=== PATIENT | female | born 1980 | race Two or more races ===

== ENCOUNTER 2016-10-04 22:13 | Emergency (ER) | payer OTHER ==
[~2016-10-04 22:13] MED LIST: AMLO5TAB4 PO; DOCU-27 PO; FERR-26 PO; HYDR115S2 PO; PRED20TA PO
[2016-10-04 22:54] LABS: BILIRUBIN,URINE NEGATIVE (NEG); GLUCOSE,URINE NEGATIVE (NEG); NITRITE,URINE NEGATIVE (NEG); PROTEIN,URINE NEGATIVE (NEG-TRACE)
[2016-10-04 22:59] LABS: BACTERIA,URINE FEW /HPF (0-FEW); RBC,URINE 0 /HPF (0-2); SQUAMOUS EPITHELIAL CELL,UR MOD /LPF
[2016-10-04] MEDS ORDERED: ONDANSETRON PF 4 MG/2 ML VIAL. IV ONE (23:15)
[2016-10-04] MEDS ORDERED: MORPHINE SULFATE 4 MG/ML DISP.SYRIN. IV ONE (23:15)
[2016-10-04] MEDS ORDERED: IV NORMAL SALINE 1000ML BAG 1,000 ML IV SCH (23:15)
[2016-10-04 23:48] LABS: BASO # 0.1 x10^3/uL (0.0-0.2); BASO % 1 % (0-3); EOS % 1 % (0-3); HEMOGLOBIN 9.2 g/dL (12.0-15.5); LYMPH # 1.9 x10^3/uL (1.0-4.8); LYMPH % 23 % (24-48); MEAN CORPUSCULAR HEMOGLOBIN 18 pg (25-35); MEAN CORPUSCULAR HGB CONC 30 g/dL (31-37); MEAN CORPUSCULAR VOLUME 62 fL (79-100); MONO % 8 % (0-9); NEUT % 67 % (31-73); PLATELET COUNT 600 x10^3/uL (140-400); RED BLOOD COUNT 5.02 x10^6/uL (3.50-5.40); RED CELL DISTRIBUTION WIDTH 19.2 % (11.5-14.5); WHITE BLOOD COUNT 8.4 x10^3/uL (4.0-11.0)
--- NOTE | 2016-10-04 23:49 | RAD ---
CT abdomen and pelvis without contrast: Reason for examination: Severe left-sided flank pain and low abdominal pain with nausea and vomiting. Helical images were obtained through the abdomen and pelvis with no intravenous or oral contrast administered. Reconstruction was performed in sagittal and coronal planes. Examination is limited by the minimal intra-abdominal fat and relatively homogeneous density of the abdominal structures. The lung bases are clear. The heart size is normal with no pericardial effusion seen. No focal abnormalities seen in the liver, spleen gallbladder or in the region pancreas or adrenal glands pancreas however is it from the adjacent bowel, aorta and inferior vena cava. The appendix is not specifically identified. There is a moderate amount of fecal material in the colon. No other focal abnormality of the intestinal tract is identified. The kidneys show no renal masses, hydronephrosis renal calculi or evidence of calcification along the course of the ureters. Calcifications consistent with phleboliths are present in the pelvis No gross abnormality is evident at the bladder, uterus or ovaries. No acute bony abnormalities are evident. Impression: Examination severely limited by the lack of the abdominal fat with crowding and poor delineation of separate abdominal structures due to homogeneous density of the abdominal tissues. No gross hydronephrosis or renal calculi identified. Appendix not identified. No cholelithiasis seen. Moderate amount of fecal material in the colon. Calcifications which are consistent with phleboliths are seen in the pelvis. Exposure: One or more of the following individualized dose reduction techniques were used for this examination: 1. Automated exposure control. 2. Adjustment of the mA and/or kV according to patient size. 3. Use of iterative reconstruction technique. Electronically signed by: Catrina Leonard MD (Oct 04, 2016 23:48:11)
[2016-10-05 00:02] LABS: CALCIUM 9.3 mg/dL (8.5-10.1); CREATININE 0.8 mg/dL (0.6-1.0); GFR 80.3; POTASSIUM 3.3 mmol/L (3.5-5.1)
[2016-10-05 00:05] LABS: ALBUMIN/GLOBULIN RATIO 0.8 (1.0-1.7); TOTAL BILIRUBIN 0.3 mg/dL (0.2-1.0); TOTAL PROTEIN 8.9 g/dL (6.4-8.2)
--- NOTE | 2016-10-05 00:14 | PHYS DOC ---
Past Medical History Past Medical History: Anemia Past Surgical History: , Tubal ligation Alcohol Use: None Drug Use: None Adult General Chief Complaint Chief Complaint: ABDOMINAL PAIN HPI HPI Patient is a 36 year old female who presents with abdominal pain. Patient reports for the past two weeks she has had increasing pain in her lower abdomen and L flank. No clear inciting or mitigating factors. Pain is accompanied by nausea and vomiting. No urinary symptoms. No vaginal bleeding or discharge. Patient has not taken anything for symptoms at home. No prior similar episodes. Review of Systems Review of Systems Constitutional: Denies fever or chills Eyes: Denies change in visual acuity or eye pain HENT: Denies nasal congestion or sore throat Respiratory: Denies cough or shortness of breath Cardiovascular: Denies chest pain GI: Lower abdominal pain, nausea, vomiting. Denies bloody stools or diarrhea : Denies dysuria or hematuria. Denies vaginal bleeding or discharge. Musculoskeletal: L flank pain. Integument: Denies rash or skin lesions Neurologic: Denies headache, focal weakness or sensory changes Current Medications Current Medications Current Medications Medications (Trade) Dose Ordered Sig/Farrah Start Time Stop Time Status Last Admin Dose Admin Amlodipine Besylate (Norvasc) 5 mg 1X ONCE 10/05/16 00:45 10/05/16 00:46 DC 10/05/16 01:04 5 MG Ceftriaxone Sodium (Rocephin Im) 250 mg 1X ONCE 10/05/16 00:45 10/05/16 00:46 DC 10/05/16 01:03 250 MG Doxycycline Hyclate (Vibra-Tab) 100 mg 1X ONCE 10/05/16 00:45 10/05/16 00:46 DC 10/05/16 01:04 100 MG Metronidazole (Flagyl) 500 mg 1X ONCE 10/05/16 00:45 10/05/16 00:46 DC 10/05/16 01:04 500 MG Morphine Sulfate 4 mg 1X ONCE 10/04/16 23:15 10/04/16 23:16 DC 10/04/16 23:46 4 MG Ondansetron HCl (Zofran) 4 mg 1X ONCE 10/04/16 23:15 10/04/16 23:16 DC 10/04/16 23:46 4 MG Sodium Chloride (Iv Sodium Chloride 0.9% 1000ml Bag) 1,000 ml @ 1,000 mls/hr Q1H 10/04/16 23:15 10/05/16 00:14 DC 10/04/16 23:47 1,000 MLS/HR Allergies Allergies Allergies Coded Allergies Type Severity Reaction Last Updated Verified No Known Drug Allergies 06/09/15 No Physical Exam Physical Exam Constitutional: Well developed, well nourished, no acute distress, non-toxic appearance HENT: Normocephalic, atraumatic, bilateral external ears normal Eyes: EOMI, conjunctiva normal, no discharge Neck: Normal range of motion, no stridor Cardiovascular: Heart rate normal, regular rhythm, no murmur Lungs & Thorax: Bilateral breath sounds clear to auscultation Abdomen: Bowel sounds normal, soft, non-distended, lower abdomen TTP without guarding or rebound Pelvic: Moderate amount thick white discharge in vault, CMT present, no significant adnexal tenderness Skin: Warm, dry, no erythema, no rash Back: L CVA tenderness Extremities: No obvious deformity, no edema Neurologic: Alert and oriented X 3, no gross deficits noted Psychologic: Affect normal, judgement normal, mood normal Current Patient Data Vital Signs Vital Signs Date Time Temp Pulse Resp B/P Pulse Ox O2 Delivery O2 Flow Rate FiO2 10/05/16 01:24 78 180/107 98 Room Air 10/04/16 23:46 16 10/04/16 22:25 98.1 98.1 Lab Values Laboratory Tests Test 10/04/16 21:40 10/04/16 22:32 10/04/16 23:40 POC Urine HCG, Qualitative Hcg negative (Negative) Urine Collection Type Unknown Urine Color Yellow Urine Clarity Clear Urine pH 6.0 Urine Specific [place] 1.020 Urine Protein Negativemg/dL (NEG-TRACE) Urine Glucose (UA) Negativemg/dL (NEG) Urine Ketones (Stick) Negativemg/dL (NEG) Urine Blood Negative (NEG) Urine Nitrite Negative (NEG) Urine Bilirubin Negative (NEG) Urine Urobilinogen Dipstick 1.0mg/dL (0.2 mg/dL) Urine Leukocyte Esterase Small (NEG) Urine RBC 0/HPF (0-2) Urine WBC 5-10/HPF (0-4) Urine Squamous Epithelial Cells Mod/LPF Urine Bacteria Few/HPF (0-FEW) Urine Mucus Mod/LPF White Blood Count 8.4x10^3/uL (4.0-11.0) Red Blood Count 5.02x10^6/uL (3.50-5.40) Hemoglobin 9.2g/dL (12.0-15.5) L Hematocrit 31.0% (36.0-47.0) L Mean Corpuscular Volume 62fL (79-100) L Mean Corpuscular Hemoglobin 18pg (25-35) L Mean Corpuscular Hemoglobin Concent 30g/dL (31-37) L Red Cell Distribution Width 19.2% (11.5-14.5) H Platelet Count 600x10^3/uL (140-400) H Neutrophils (%) (Auto) 67% (31-73) Lymphocytes (%) (Auto) 23% (24-48) L Monocytes (%) (Auto) 8% (0-9) Eosinophils (%) (Auto) 1% (0-3) Basophils (%) (Auto) 1% (0-3) Neutrophils # (Auto) 5.6x10^3uL (1.8-7.7) Lymphocytes # (Auto) 1.9x10^3/uL (1.0-4.8) Monocytes # (Auto) 0.7x10^3/uL (0.0-1.1) Eosinophils # (Auto) 0.1x10^3/uL (0.0-0.7) Basophils # (Auto) 0.1x10^3/uL (0.0-0.2) Platelet Estimate Increased (ADEQUATE) Large Platelets Few Polychromasia Slight Hypochromasia Mod Poikilocytosis Mod Microcytosis Marked Macrocytosis Slight Spherocytes Occ Target Cells Occ Ovalocytes Occ Sodium Level 141mmol/L (136-145) Potassium Level 3.3mmol/L (3.5-5.1) L Chloride Level 102mmol/L (98-107) Carbon Dioxide Level 28mmol/L (21-32) Anion Gap 11 (6-14) Blood Urea Nitrogen 11mg/dL (7-20) Creatinine 0.8mg/dL (0.6-1.0) Estimated GFR (Cockcroft-Gault) 80.3 BUN/Creatinine Ratio 14 (6-20) Glucose Level 81mg/dL (70-99) Calcium Level 9.3mg/dL (8.5-10.1) Total Bilirubin 0.3mg/dL (0.2-1.0) Aspartate Amino Transferase (AST) 25U/L (15-37) Alanine Aminotransferase (ALT) 28U/L (14-59) Alkaline Phosphatase 39U/L (46-116) L Total Protein 8.9g/dL (6.4-8.2) H Albumin 4.0g/dL (3.4-5.0) Albumin/Globulin Ratio 0.8 (1.0-1.7) L Lipase 146U/L (73-393) Laboratory Tests 10/04/16 23:40 Laboratory Tests 10/04/16 23:40 Microbiology 10/05/16 Wet Prep - Final, Complete EKG EKG [] Radiology/Procedures Radiology/Procedures CT A/P: Impression: Examination severely limited by the lack of the abdominal fat with crowding and poor delineation of separate abdominal structures due to homogeneous density of the abdominal tissues. No gross hydronephrosis or renal calculi identified. Appendix not identified. No cholelithiasis seen. Moderate amount of fecal material in the colon. Calcifications which are consistent with phleboliths are seen in the pelvis. Course & Med Decision Making Course & Med Decision Making Pertinent Labs and Imaging studies reviewed. (See chart for details) Patient is 36 year old female who presents with lower abdominal pain. DDx includes UTI, PID, kidney stone. Will check CT A/P to r/o stone, labs, UA, urine preg screen, pelvic swabs. IVF, pain meds, nausea meds ordered for relief of symptoms. Dose of amlodipine ordered for elevated BP (patient reports h/o elevated BP; I discussed with her the importance of following up with PCP for possible HTN meds). Imaging results as above - limited but does not show evidence of stone. Labs notable for baseline anemia. Pelvic swabs indicative of bacterial vaginosis. Will treat for presumed PID as well as BV; IM rocephin, doxycycline, metronidazole ordered. Discussed results with patient. Will discharge with rx for abx, pain meds, instructions for follow up, return precautions. Dragon Disclaimer Dragon Disclaimer This electronic medical record was generated, in whole or in part, using a voice recognition dictation system. Departure Departure Impression: Primary Impression: Abdominal pain Additional Impression: Bacterial vaginosis Disposition: 01 HOME, SELF-CARE Condition: STABLE Referrals: NO PCP (PCP) Patient Instructions: Abdominal Pain, Women, Bacterial Vaginosis, Pelvic Inflammatory Disease Additional Instructions: Thank you for allowing us to provide care today in the Emergency Department. Take the provided medication as directed. Use caution when taking the pain medication as it may make you drowsy. Schedule a follow up appointment with a primary care doctor to discuss both your current symptoms as well as your blood pressure. This is very important. Return promptly to the Emergency Department if you develop any new or concerning symptoms. Scripts Tramadol Hcl 50 Mg [id number] Mg PO Q6H PRN PAIN #20 TAB Prov:DEVON LINDSAY MD 10/05/16 Metronidazole 500 Mg Tablet1 Tab PO BID #28 TAB Prov:DEVON LINDSAY MD 10/05/16 Doxycycline Hyclate 100 Mg Tablet1 Tab PO BID #28 TAB Prov:DEVON LINDSAY MD 10/05/16 Problem Qualifiers DEVON LINDSAY MD Oct 05, 2016 00:14
[2016-10-05] MEDS ORDERED: DOXYCYCLINE HYCLATE 100 MG TABLET PO ONE (00:45)
[2016-10-05] MEDS ORDERED: METRONIDAZOLE 500 MG TABLET. PO ONE (00:45)
[2016-10-05] MEDS ORDERED: CEFTRIAXONE IM 250 MG VIAL. IM ONE (00:45)
[2016-10-05] MEDS ORDERED: AMLODIPINE BESYLATE 5 MG TABLET PO ONE (00:45)
[2016-10-05] MEDS ORDERED: DOXY100T PO (01:10)
[2016-10-05] MEDS ORDERED: METR500T4 PO (01:10)
[2016-10-05] MEDS ORDERED: TRAM50TA PO (01:10)
[2016-10-05 01:24] VITALS: BP 180/107
[2016-10-05 01:52] LABS: HYPOCHROMIA MOD; MICROCYTOSIS MARKED; OVALOCYTES OCC; PLT ESTIMATE INCREASED (ADEQUATE); POIKILOCYTOSIS MOD; POLYCHROMASIA SLIGHT; SPHEROCYTES OCC; TARGET CELLS OCC
== END 2016-10-05 01:32 | disposition home or self-care (01) ==
LOC: ER 22:13
DX: N76.0 Acute vaginitis (principal); R11.2 Nausea with vomiting, unspecified; B96.89 Other specified bacterial agents as the cause of diseases classified elsewhere; Z98.51 Tubal ligation status
CPT/HCPCS: 36415; 74176; 80053; 81001; 81025; 83690; 85007; 85027; 87086; 87491; 87591; 96361; 96372; 96374; 96375; 99285; J0696; J2270; J2405; J7030; Q0111

== ENCOUNTER 2016-10-12 14:56 | Emergency (ER) | payer OTHER ==
[~2016-10-12] VITALS: Ht 147.3 cm; Wt 51.7 kg
[~2016-10-12 14:56] MED LIST changes: +DOXY100T PO; +METR500T4 PO; +TRAM50TA PO
--- NOTE | 2016-10-12 16:15 | PHYS DOC ---
Past Medical History Past Medical History: Anemia, Hypertension Past Surgical History: , Tubal ligation Alcohol Use: None Drug Use: None Adult General Chief Complaint Chief Complaint: HYPERTENSION HPI HPI Patient is a 36 year old female who presents with elevated blood pressure. Patient was seen in our emergency department last Sunday (approximately 8 days ago) for abdominal pain at that time it was discovered her blood pressure was elevated. Patient was referred to her primary care physician for intervention. Patient was seen by primary physician on Sunday and started on hydrochlorothiazide. Since then patient has noticed some lightheadedness and dizziness and some left flank discomfort. No fevers or chills. No shortness of breath, vomiting or diarrhea. Patient has a history of gestational hypertension. Family history positive for hypertension and breast cancer. Patient is a nonsmoker. Review of Systems Review of Systems Constitutional: Denies fever or chills Eyes: Denies change in visual acuity, redness, or eye pain HENT: Denies nasal congestion or sore throat Respiratory: Denies cough or shortness of breath Cardiovascular: No chest pain or palpitations GI: Denies abdominal pain, nausea, vomiting, bloody stools or diarrhea : Denies dysuria or hematuria Musculoskeletal: Denies back pain or joint pain Integument: Denies rash or skin lesions Neurologic: Denies focal weakness or sensory changes. Positive headache Endocrine: Denies polyuria or polydipsia Allergies Allergies Allergies Coded Allergies Type Severity Reaction Last Updated Verified No Known Drug Allergies 06/09/15 No Physical Exam Physical Exam Constitutional: Well developed, well nourished, no acute distress, non-toxic appearance. HENT: Normocephalic, atraumatic, oropharynx moist, no oral exudates, nose normal. Eyes: PERRLA, EOMI, conjunctiva normal, no discharge. Neck: Normal range of motion, no tenderness, supple, no stridor. Cardiovascular:Heart rate regular rhythm, no murmur Lungs & Thorax: Bilateral breath sounds clear to auscultation Abdomen: Bowel sounds normal, soft, no tenderness, no masses, no pulsatile masses. Skin: Warm, dry, no erythema, no rash. Back: No tenderness, left CVA tenderness. Extremities: No tenderness, no cyanosis, no clubbing, no edema. Neurologic: Alert and oriented X 3, normal motor function, normal sensory function, no focal deficits noted. Psychologic: Affect normal, judgement normal, mood normal. Current Patient Data Vital Signs Vital Signs Date Time Temp Pulse Resp B/P Pulse Ox O2 Delivery O2 Flow Rate FiO2 10/12/16 18:05 69 12 169/100 99 Room Air 10/12/16 15:12 97.5 97.5 Lab Values Laboratory Tests Test 10/12/16 16:00 10/12/16 16:45 Urine Collection Type Unknown Urine Color Yellow Urine Clarity Clear Urine pH 5.5 Urine Specific [place] >=1.030 Urine Protein Negativemg/dL (NEG-TRACE) Urine Glucose (UA) Negativemg/dL (NEG) Urine Ketones (Stick) Negativemg/dL (NEG) Urine Blood Negative (NEG) Urine Nitrite Negative (NEG) Urine Bilirubin Negative (NEG) Urine Urobilinogen Dipstick 0.2mg/dL (0.2 mg/dL) Urine Leukocyte Esterase Small (NEG) Urine RBC 0/HPF (0-2) Urine WBC 5-10/HPF (0-4) Urine Squamous Epithelial Cells Mod/LPF Urine Bacteria Few/HPF (0-FEW) Urine Mucus Marked/LPF White Blood Count 7.6x10^3/uL (4.0-11.0) Red Blood Count 4.92x10^6/uL (3.50-5.40) Hemoglobin 8.7g/dL (12.0-15.5) L Hematocrit 29.4% (36.0-47.0) L Mean Corpuscular Volume 60fL (79-100) L Mean Corpuscular Hemoglobin 18pg (25-35) L Mean Corpuscular Hemoglobin Concent 30g/dL (31-37) L Red Cell Distribution Width 18.7% (11.5-14.5) H Platelet Count 504x10^3/uL (140-400) H Neutrophils (%) (Auto) 70% (31-73) Lymphocytes (%) (Auto) 18% (24-48) L Monocytes (%) (Auto) 11% (0-9) H Eosinophils (%) (Auto) 0% (0-3) Basophils (%) (Auto) 1% (0-3) Neutrophils # (Auto) 5.3x10^3uL (1.8-7.7) Lymphocytes # (Auto) 1.4x10^3/uL (1.0-4.8) Monocytes # (Auto) 0.8x10^3/uL (0.0-1.1) Eosinophils # (Auto) 0.0x10^3/uL (0.0-0.7) Basophils # (Auto) 0.1x10^3/uL (0.0-0.2) Platelet Estimate Increased (ADEQUATE) Hypochromasia Marked Poikilocytosis Slight Anisocytosis Slight Microcytosis Marked Ovalocytes Few Sodium Level 138mmol/L (136-145) Potassium Level 3.6mmol/L (3.5-5.1) Chloride Level 102mmol/L (98-107) Carbon Dioxide Level 25mmol/L (21-32) Anion Gap 11 (6-14) Blood Urea Nitrogen 14mg/dL (7-20) Creatinine 0.9mg/dL (0.6-1.0) Estimated GFR (Cockcroft-Gault) 70.1 BUN/Creatinine Ratio 16 (6-20) Glucose Level 94mg/dL (70-99) Calcium Level 9.1mg/dL (8.5-10.1) Total Bilirubin 0.4mg/dL (0.2-1.0) Aspartate Amino Transferase (AST) 14U/L (15-37) L Alanine Aminotransferase (ALT) 15U/L (14-59) Alkaline Phosphatase 22U/L (46-116) L Troponin I Quantitative < 0.017ng/mL (0.000-0.055) Total Protein 8.1g/dL (6.4-8.2) Albumin 3.7g/dL (3.4-5.0) Albumin/Globulin Ratio 0.8 (1.0-1.7) L Laboratory Tests 10/12/16 16:45 Laboratory Tests 10/12/16 16:45 EKG EKG [] Radiology/Procedures Radiology/Procedures [] Course & Med Decision Making Course & Med Decision Making Pertinent Labs and Imaging studies reviewed. (See chart for details) [] Dragon Disclaimer Dragon Disclaimer This electronic medical record was generated, in whole or in part, using a voice recognition dictation system. Departure Departure Impression: Primary Impression: Hypertension Disposition: 01 HOME, SELF-CARE Condition: STABLE Referrals: FATMATA ZARATE APRN (PCP) Patient Instructions: Hypertension Additional Instructions: Stop taking Hydrochlorothiazide when starting Lasix. Scripts Furosemide (Lasix)20 Mg Tablet1 Tab PO DAILY #30 TAB Ref 5 Prov:PRAVIN JORDAN MD 10/12/16 Problem Qualifiers Primary Impression: Hypertension Hypertension type: essential hypertension Qualified Code: I10 - Essential ( primary) hypertension PRAVIN JORDAN MD Oct 12, 2016 16:15
[2016-10-12 16:22] LABS: BILIRUBIN,URINE NEGATIVE (NEG); GLUCOSE,URINE NEGATIVE (NEG); NITRITE,URINE NEGATIVE (NEG); PH,URINE 5.5; PROTEIN,URINE NEGATIVE (NEG-TRACE); UROBILINOGEN,URINE 0.2 mg/dL (0.2 mg/dL)
[2016-10-12 16:30] LABS: BACTERIA,URINE FEW /HPF (0-FEW); RBC,URINE 0 /HPF (0-2); SQUAMOUS EPITHELIAL CELL,UR MOD /LPF
[2016-10-12 17:01] LABS: BASO # 0.1 x10^3/uL (0.0-0.2); BASO % 1 % (0-3); EOS % 0 % (0-3); HEMATOCRIT 29.4 % (36.0-47.0); HEMOGLOBIN 8.7 g/dL (12.0-15.5); LYMPH # 1.4 x10^3/uL (1.0-4.8); LYMPH % 18 % (24-48); MEAN CORPUSCULAR HEMOGLOBIN 18 pg (25-35); MEAN CORPUSCULAR HGB CONC 30 g/dL (31-37); MEAN CORPUSCULAR VOLUME 60 fL (79-100); MONO % 11 % (0-9); NEUT % 70 % (31-73); PLATELET COUNT 504 x10^3/uL (140-400); RED BLOOD COUNT 4.92 x10^6/uL (3.50-5.40); RED CELL DISTRIBUTION WIDTH 18.7 % (11.5-14.5); WHITE BLOOD COUNT 7.6 x10^3/uL (4.0-11.0)
[2016-10-12 17:31] LABS: CALCIUM 9.1 mg/dL (8.5-10.1); CREATININE 0.9 mg/dL (0.6-1.0); GFR 70.1; POTASSIUM 3.6 mmol/L (3.5-5.1)
[2016-10-12 17:37] LABS: ALBUMIN 3.7 g/dL (3.4-5.0); ALBUMIN/GLOBULIN RATIO 0.8 (1.0-1.7); TOTAL BILIRUBIN 0.4 mg/dL (0.2-1.0); TOTAL PROTEIN 8.1 g/dL (6.4-8.2)
[2016-10-12 17:40] LABS: PLT ESTIMATE INCREASED (ADEQUATE)
[2016-10-12 17:42] LABS: ANISOCYTOSIS SLIGHT; HYPOCHROMIA MARKED; MICROCYTOSIS MARKED; OVALOCYTES FEW; POIKILOCYTOSIS SLIGHT
[2016-10-12 18:05] VITALS: BP 169/100
[2016-10-12] MEDS ORDERED: FURO-69 PO (18:30)
--- NOTE | 2016-10-13 06:20 | EKG ---
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
== END 2016-10-12 18:35 | disposition home or self-care (01) ==
LOC: ER 14:56
DX: I10 Essential (primary) hypertension (principal); R10.9 Unspecified abdominal pain
CPT/HCPCS: 36415; 80053; 81001; 84484; 85007; 85027; 87086; 93005; 99285-25

== ENCOUNTER 2016-11-11 21:43 | Emergency (ER) | payer OTHER ==
[~2016-11-11] VITALS: Ht 144.8 cm; Wt 51.9 kg
[~2016-11-11 21:43] MED LIST changes: +FURO-69 PO
[2016-11-11 22:16] VITALS: BP 200/96
--- NOTE | 2016-11-11 22:46 | PHYS DOC ---
Past Medical History Past Medical History: Anemia, Hypertension Past Surgical History: , Tubal ligation Alcohol Use: None Drug Use: None Adult General Chief Complaint Chief Complaint: LACERATION/AVULSION HPI HPI Patient is a 36 year old female presents emergency department stating that she was opening a can when she cut her left thumb. Patient states that she has had increased bleeding and discomfort. Patient states her last tetanus shot was approximately 2013. Patient denies any numbness or tingling into her thumb. She has not taken anything for pain and discomfort and is requesting ibuprofen. Patient is right-hand dominant Review of Systems Review of Systems Constitutional: Denies fever or chills [] Eyes: Denies change in visual acuity, redness, or eye pain [] HENT: Denies nasal congestion or sore throat [] Respiratory: Denies cough or shortness of breath [] Cardiovascular: No additional information not addressed in HPI [] GI: Denies abdominal pain, nausea, vomiting, bloody stools or diarrhea [] : Denies dysuria or hematuria [] Musculoskeletal: Denies back pain or joint pain [] Integument: Denies rash or skin lesions. C/o laceration to left thumb Neurologic: Denies headache, focal weakness or sensory changes [] Current Medications Current Medications Current Medications Medications (Trade) Dose Ordered Sig/Farrah Start Time Stop Time Status Last Admin Dose Admin Ibuprofen (Motrin) 800 mg 1X ONCE 11/11/16 23:00 11/11/16 23:01 DC 11/11/16 23:05 800 MG Allergies Allergies Allergies Coded Allergies Type Severity Reaction Last Updated Verified No Known Drug Allergies 06/09/15 No Physical Exam Physical Exam Constitutional: Well developed, well nourished, no acute distress, non-toxic appearance. [] HENT: Normocephalic, atraumatic, bilateral external ears normal, oropharynx moist, no oral exudates, nose normal. [] Eyes: PERRLA, EOMI, conjunctiva normal, no discharge. [] Neck: Normal range of motion, no tenderness, supple, no stridor. [] Cardiovascular:Heart rate regular rhythm Lungs & Thorax: No respiratory distress noted Skin: Warm, dry, no erythema, no rash. Patient with a superficial laceration noted to the left thumb. Bleeding is currently controlled. Patient has full range of motion of the thumb without difficulty. Back: No tenderness Extremities: No tenderness, no cyanosis, no clubbing, ROM intact, no edema. [] Neurologic: Alert and oriented X 3, normal motor function, normal sensory function, no focal deficits noted. [] Psychologic: Affect normal, judgement normal, mood normal. [] Current Patient Data Vital Signs Vital Signs Date Time Temp Pulse Resp B/P Pulse Ox O2 Delivery O2 Flow Rate FiO2 11/11/16 22:16 98.0 78 16 100 Room Air 98.0 EKG EKG [] Radiology/Procedures Radiology/Procedures [] Course & Med Decision Making Course & Med Decision Making Pertinent Labs and Imaging studies reviewed. (See chart for details) Superficial laceration was less than 0.25 cm in length. Site was cleaned with soap and water. Steri-Strip was also placed over the area. Patient was provided with signs and symptoms of infection. His recommended Tylenol or ibuprofen for pain and discomfort as well as ice packs. Patient will be discharged home in stable condition. Signs and symptoms to return back to emergency department as been provided. A shunt agrees with discharge instructions treatment regimens and follow-up recommendations. [] Dragon Disclaimer Dragon Disclaimer This electronic medical record was generated, in whole or in part, using a voice recognition dictation system. Departure Departure Impression: Primary Impression: Laceration of left thumb Disposition: 01 HOME, SELF-CARE Condition: STABLE Referrals: FATMATA ZARATE APRN (PCP) Patient Instructions: Laceration Care, Adult, [id number], Stitches, Bitely or Skin Adhesive Strips, [id number] Additional Instructions: Activity as tolerated Tylenol or Ibuprofen for pain and discomfort Ice packs on 20 minutes and off 20 minutes several times a day Elevation as much as possible Keep the area clean and dry Watch for signs and symptoms of infection: redness, warmth, tenderness or yellow /greenish drainage. If this should occur followup with your primary care provider immediately Followup with primary care provider as needed Return to emergency department as needed for signs and symptoms that become worse, LAVERN AMEZCUA APRN Nov 11, 2016 22:46
[2016-11-11] MEDS ORDERED: IBUPROFEN 800 MG TABLET. PO ONE (23:00)
== END 2016-11-11 23:10 | disposition home or self-care (01) ==
LOC: ER 21:43
DX: S61.012A Laceration without foreign body of left thumb without damage to nail, initial encounter (principal); I10 Essential (primary) hypertension; W26.8XXA Contact with other sharp object(s), not elsewhere classified, initial encounter; Y93.89 Activity, other specified; Y92.89 Other specified places as the place of occurrence of the external cause; Y99.8 Other external cause status
CPT/HCPCS: 99283